=== PATIENT | female | born 1945 | race Caucasian/White ===

== ENCOUNTER → 2023-08-08 08:00 | Outpatient (REF) | payer OTHER, SELFPAY ==
[2023-08-08 08:22] LABS: % Basophils 0.8 % (0-2); % Immature Granulocytes 0.5 % (0-0.5); % Lymphocytes 21.2 % (20.5-51.1); % Monocytes 9.2 % (1.7-9.3); % Neutrophils 64.3 % (42.2-75.2); Absolute Basophils 0.1 10^3/uL (0-0.2); Absolute Eosinophils 0.3 10^3/uL (0-0.7); Absolute Lymphocytes 1.8 10^3/uL (1.2-3.4); Absolute Monocytes 0.8 10^3/uL (0.1-0.6); Absolute Neutrophils 5.5 10^3/uL (1.4-6.5); Hematocrit 38.1 % (37.0-47.0); Hemoglobin 12.6 g/dL (12.0-16.0); Mean Corp Hgb Conc. 33.1 g/dL (33.0-37.0); Mean Corpuscular Volume 84.7 fL (81.0-99.0); Nucleated Red Blood Cells % 0 %; Platelet Count 349 10^3/uL (130-400); Red Cell Dist. Width 14.2 % (11.5-14.5); White Blood Cell Count 8.6 10^3/uL (4.8-10.8)
[2023-08-08 09:15] LABS: ALT (SGPT) 12 U/L (0-35); AST (SGOT) 15 U/L (14-36); Albumin 3.5 g/dl (3.5-5.0); Alkaline Phosphatase 86 U/L (38-126); Blood Urea Nitrogen 18 mg/dl (7-17); Calcium 10.1 mg/dl (8.4-10.2); Carbon Dioxide 27 mmol/L (22-30); Chloride 101 mmol/L (98-107); Glucose 114 mg/dl (70-99); HDL Cholesterol 45 mg/dl; LDL Cholesterol, Calculated 33 mg/dl; Sodium 139 mmol/L (135-145); Total Bilirubin 0.7 mg/dl (0.2-1.3); Total Cholesterol 95 mg/dl (50-199); Total Protein 6.4 g/dl (6.3-8.2); Triglyceride 89 mg/dl (10-149); Very Low Density Lipoprotein 17 mg/dl (0-30); eGFR > 60.00
[2023-08-08 10:05] LABS: TSH Reflex To Free T4 1.81 uIU/ml (0.47-4.68)
== END ==
LOC: REG 08:00
PROVIDERS: ATTENDING PHYSICIAN Obstetrics & Gynecology Gynecology; FAMILY PHYSICIAN Registered Nurse; REFERRING PHYSICIAN Nuclear Medicine Nuclear Cardiology
DX: I11.9 Hypertensive heart disease without heart failure (principal); I70.0 Atherosclerosis of aorta; R73.03 Prediabetes; E66.01 Morbid (severe) obesity due to excess calories; E78.2 Mixed hyperlipidemia; Z12.31 Encounter for screening mammogram for malignant neoplasm of breast
CPT/HCPCS: 36415; 77063; 77067; 80053; 80061; 83036; 84443; 85025

== ENCOUNTER → 2023-12-28 10:56 | Outpatient (REF) | payer OTHER, SELFPAY | LOC: HWRCS 10:56 | PROVIDERS: ATTENDING PHYSICIAN Nuclear Medicine Nuclear Cardiology; FAMILY PHYSICIAN Registered Nurse | DX: I35.0 Nonrheumatic aortic (valve) stenosis (principal) | CPT/HCPCS: 93306 ==

== ENCOUNTER → 2023-12-28 15:28 | Outpatient (REF) | payer OTHER, SELFPAY | LOC: PAVMRI 15:28 | PROVIDERS: ATTENDING PHYSICIAN Orthopaedic Surgery; FAMILY PHYSICIAN Registered Nurse | DX: M25.579 Pain in unspecified ankle and joints of unspecified foot (principal) | CPT/HCPCS: 73721 ==